=== PATIENT | female | born 1980 ===

== ENCOUNTER 2021-03-26 06:01 | Emergency (ER) | payer SELFPAY ==
[~2021-03-26] VITALS: Ht 157.5 cm; Wt 96.4 kg
[2021-03-26 06:04] VITALS: BP 134/75; Ht 157.5 cm; Wt 96.4 kg
[2021-03-26 06:44] LABS: CALC OSMOLALITY 273 mosm/kg (275-300); CALCIUM 8.4 mg/dL (8.5-10.1); CARBON DIOXIDE 25.6 mmol/L (21.0-32.0); CHLORIDE - SERUM 104 mmol/L (98-107); CREATININE - SERUM 0.8 mg/dL (0.6-1.3); GLUCOSE 138 mg/dL (74-106); SODIUM 136 mmol/L (136-145); UREA NITROGEN 12 mg/dL (7-18); eGFR NON AFRICAN AMERICAN 84 mL/min (90-120)
[2021-03-26 06:49] LABS: ALBUMIN 3.4 g/dL (3.4-5.0); ALKALINE PHOSPHATASE 117 U/L (30-120); ALT (SGPT) 32 U/L (10-68); AMYLASE - SERUM 44 U/L (25-115); BILIRUBIN - TOTAL 0.21 mg/dL (0.2-1.3); LIPASE 62 U/L (73-393); PROTEIN - SERUM 7.9 g/dL (6.4-8.2)
[2021-03-26 06:53] LABS: POTASSIUM - SERUM 4.4 mmol/L (3.5-5.1)
[2021-03-26 07:27] LABS: BACTERIA FEW HPF (NONE SEEN); BILIRUBIN NEGATIVE (NEGATIVE); KETONE NEGATIVE (NEGATIVE); NITRITE NEGATIVE (NEGATIVE); SQUAMOUS EPITHELIAL 0-5 HPF (0-4); UROBILINOGEN NORMAL mg/dL (< 2); WHITE CELLS - URINE 0-5 HPF (0-4)
[2021-03-26 07:35] LABS: BASOPHILS 0.2 % (0-2); EOSINOPHILS 1.6 % (0-7); HEMATOCRIT 28.9 % (36.0-48.0); HEMOGLOBIN 8.5 g/dL (12-16); IMMATURE GRANULOCYTES 0.5 % (0-5); LYMPHOCYTES 26.7 % (15-50); MCHC 29.4 g/dL (31.0-37.0); MCV 62.6 fL (80.0-100.0); MONOCYTES 7.2 % (2-11); NEUTROPHILS 63.8 % (40-80); PLATELET COUNT 331 10x3/uL (130-400); RBC 4.62 10x6/uL (4.00-5.40); WBC 8.6 10x3/uL (4.8-10.8)
[2021-03-26 07:36] LABS: MCH 18.4 pg (26.0-34.0)
[2021-03-26] MEDS ORDERED: CYCLOBENZAPRINE10 MG PO (08:58)
[2021-03-26] MEDS ORDERED: ACETAMINOPHEN500 M1 PO (09:03)
[2021-03-26] MEDS ORDERED: CIPRO500 MG PO (09:09)
[2021-03-26 10:38] LABS: HCG URINE NEGATIVE (NEGATIVE)
== END 2021-03-26 09:17 | disposition home or self-care (01) ==
LOC: D.ER 06:01
PROVIDERS: Family Medicine
DX: N30.90 Cystitis, unspecified without hematuria (principal); R10.30 Lower abdominal pain, unspecified; M54.9 Dorsalgia, unspecified; D64.9 Anemia, unspecified; N93.8 Other specified abnormal uterine and vaginal bleeding